=== PATIENT | male | born 1950 | race Hispanic/Latino ===

== ENCOUNTER → 2018-12-13 | Outpatient (CLI) | payer MEDICARE ==
[~2018-12-13] MED LIST: REGADENOSON 0.4 MG/5 ML PF SYG IVP SCH
== END | disposition home or self-care (01) ==
LOC: SHCH 08:45
PROVIDERS: ATTEND Internal Medicine Cardiovascular Disease
DX: I10 Essential (primary) hypertension (principal); R53.83 Other fatigue; I25.10 Atherosclerotic heart disease of native coronary artery without angina pectoris; E03.9 Hypothyroidism, unspecified; E78.5 Hyperlipidemia, unspecified; Z79.899 Other long term (current) drug therapy
CPT/HCPCS: 78452; 93017; 96374; A9500 ×2; J2785

== ENCOUNTER → 2018-12-19 | Outpatient (CLI) | payer MEDICARE | END | disposition home or self-care (01) | LOC: SHCH 09:50 | PROVIDERS: ATTEND Internal Medicine Cardiovascular Disease | DX: I65.23 Occlusion and stenosis of bilateral carotid arteries (principal) | CPT/HCPCS: 93880 ==

== ENCOUNTER → 2018-12-25 | Outpatient (CLI) | payer MEDICARE | END | disposition home or self-care (01) | LOC: SHCH 09:09 | PROVIDERS: ATTEND Internal Medicine Cardiovascular Disease | DX: I11.9 Hypertensive heart disease without heart failure (principal); I35.0 Nonrheumatic aortic (valve) stenosis | CPT/HCPCS: 93306 ==

== ENCOUNTER → 2022-04-06 | Outpatient (CLI) | payer MEDICARE | END | disposition home or self-care (01) | LOC: SHCH 10:32 | PROVIDERS: ATTEND Internal Medicine Cardiovascular Disease | DX: I35.8 Other nonrheumatic aortic valve disorders (principal); I11.9 Hypertensive heart disease without heart failure; I25.10 Atherosclerotic heart disease of native coronary artery without angina pectoris; E78.5 Hyperlipidemia, unspecified | CPT/HCPCS: 93306 ==

== ENCOUNTER → 2022-04-10 | Outpatient (CLI) | payer MEDICARE | END | disposition home or self-care (01) | LOC: SHCH 08:02 | PROVIDERS: ATTEND Internal Medicine Cardiovascular Disease | DX: I25.10 Atherosclerotic heart disease of native coronary artery without angina pectoris (principal); I10 Essential (primary) hypertension; Z95.1 Presence of aortocoronary bypass graft | CPT/HCPCS: 78452; 96374; 93017; J2785; A9500 ×2 ==

== ENCOUNTER 2022-05-26 06:34 | Day surgery (SDC) | payer MEDICARE ==
[2022-05-24 10:50] VITALS: BP 170/77
[2022-05-24 10:55] LABS: APPEARANCE,URINE CLEAR (CLEAR); BILIRUBIN,URINE NEGATIVE (NEGATIVE); COLOR,URINE YELLOW (YELLOW); GLUCOSE, URINE (UA) NEGATIVE (NEGATIVE); KETONES,URINE NEGATIVE (NEGATIVE); LEUKOCYTE ESTERASE ,URINE NEGATIVE Leu/uL (NEGATIVE); NITRATE,URINE NEGATIVE (NEGATIVE); OCCULT BLOOD,URINE NEGATIVE (NEGATIVE); PH,URINE 5.5 (5.0-8.0); PROTEIN,URINE 20 mg/dL (NEGATIVE); UROBILINOGEN,URINE 0.2 mg/dL (0.2-1.0)
[2022-05-24 10:55] LABS: BASOPHILS % (AUTO) 0.5 % (0.0-5.0); EOSINOPHILS % (AUTO) 2.3 % (0.0-8.0); LYMPHOCYTES % (AUTO) 21.3 % (21.0-51.0); MEAN CORPUSCULAR HGB CONC 33.6 g/dL (32.0-36.0); MEAN CORPUSCULAR VOLUME 92.3 fL (79-99); MONOCYTES % (AUTO) 6.8 % (3.0-13.0); NEUTROPHILS % (AUTO) 68.8 % (40.0-77.0); PLATELET COUNT (AUTO) 268 K/uL (130-400); RED BLOOD CELL COUNT(AUTO) 5.42 MIL/uL (4.50-6.20); RED CELL DISTRIBUTION WIDTH 13.2 % (11.0-15.5); WHITE BLOOD COUNT (AUTO) 8.9 K/uL (4.8-10.8)
[2022-05-24 11:00] LABS: MUCUS,URINE FEW LPF (None Seen)
[2022-05-24 11:05] LABS: CREATININE 1.1 mg/dL (0.5-1.5); POTASSIUM 4.7 mmol/L (3.5-5.1)
[2022-05-24 11:11] LABS: INR 0.96 (0.85-1.15); PROTHROMBIN TIME 10.5 SEC (9.6-11.6)
[2022-05-24 11:12] LABS: PARTIAL THROMBOPLASTIN TIME 26.9 SEC (26.3-35.5)
[2022-05-24 11:20] LABS: B-TYPE NATRIURETIC PEPTIDE 28 pg/mL (0-100)
[~2022-05-26] VITALS: Ht 165.1 cm; Wt 82.8 kg
[2022-05-26] VITALS (13 sets, daily range): BP systolic 129–194; BP diastolic 59–90
[~2022-05-26 06:34] MED LIST changes: +AEC81 PO; +METO25TA6 PO; +RANO500T2 PO; -REGADENOSON 0.4 MG/5 ML PF SYG IVP SCH; +SIMV80TA91 PO
[2022-05-26] MEDS ORDERED: 0.9%NACL 1000ML 1,000 ML IV ONE (07:13)
[2022-05-26] MEDS ORDERED: IOHEXOL-350 50ML VIAL IV ONE (10:18)
[2022-05-26] MEDS ORDERED: LIDOCAINE HCL 400MG/20ML VIAL ONE (10:18)
[2022-05-26] MEDS ORDERED: IOHEXOL 350 MG/ML 100ML INFUS..BTL IV ONE (10:18)
[2022-05-26] MEDS ORDERED: MEPERIDINE-PF 25 MG/ML SYG ONE ×2 (10:18→10:34)
[2022-05-26] MEDS ORDERED: SODIUM BICARB 50MEQ 50ML VIAL 50 ML ONE (10:18)
[2022-05-26] MEDS ORDERED: MIDAZOLAM HCL 1 MG/ML 2ML VIAL ONE ×2 (10:18→10:33)
[2022-05-26] MEDS ORDERED: NITROGLYCERIN 50MG VIAL ONE (10:18)
[2022-05-26] MEDS ORDERED: HEPARIN 10,000 UNIT/10ML (1,000 UNIT/ML) VIAL ONE (10:19)
[2022-05-26] MEDS ORDERED: CLOPIDOGREL 300MG TAB ONE (11:15)
[2022-05-26] MEDS ORDERED: 0.9%NACL 1000ML 1,000 ML IV SCH (11:30)
[2022-05-26] MEDS ORDERED: ACETAMINOPHEN WITH CODEINE 1 TAB TAB PO PRN ×2 (11:30)
== END 2022-05-26 17:55 | disposition home or self-care (01) ==
LOC: DAH 06:34
PROVIDERS: ATTEND Internal Medicine Cardiovascular Disease
DX: I25.119 Atherosclerotic heart disease of native coronary artery with unspecified angina pectoris (principal); I25.82 Chronic total occlusion of coronary artery; I25.719 Atherosclerosis of autologous vein coronary artery bypass graft(s) with unspecified angina pectoris; I11.0 Hypertensive heart disease with heart failure; I50.32 Chronic diastolic (congestive) heart failure; Z79.01 Long term (current) use of anticoagulants; Z79.82 Long term (current) use of aspirin; Z79.899 Other long term (current) drug therapy; Z98.890 Other specified postprocedural states; Z82.49 Family history of ischemic heart disease and other diseases of the circulatory system; Z95.5 Presence of coronary angioplasty implant and graft
CPT/HCPCS: 80048; 83880; 85025; 85610; 85730; 81001; 36415; 71045; 93005; 93459; 85347; C9604; C1769 ×2; C1887; C1894 ×2; C1760; C1874; Q9965 ×2; J3490 ×3; J7030; J1644 ×2; J2250 ×2; J2175 ×2; Q9967; A4215; A4222; A4221; A4663; A4216; A4606; A4223 ×3; 93458; 96360; 96361; 99156; 99157

== ENCOUNTER 2023-07-31 11:48 | Observation (INO) | payer OTHER, MEDICARE ==
[2023-07-30 13:10] LABS: BASOPHILS # (AUTO) 0.06 K/uL (0.00-0.20); BASOPHILS % (AUTO) 0.5 % (0.0-5.0); EOSINOPHILS # (AUTO) 0.18 K/uL (0.00-0.70); EOSINOPHILS % (AUTO) 1.4 % (0.0-8.0); IMMATURE GRANULOCYTE ABSOLUTE 0.07 K/uL (0-1); LYMPHOCYTES # (AUTO) 1.9 K/uL (1.0-4.8); LYMPHOCYTES % (AUTO) 14.3 % (21.0-51.0); MEAN CORPUSCULAR HEMOGLOBIN 32.1 pg (27.0-33.0); MEAN CORPUSCULAR HGB CONC 33.8 g/dL (32.0-36.0); MEAN CORPUSCULAR VOLUME 95.2 fL (79-99); MONOCYTES # (AUTO) 0.6 K/uL (0.1-1.0); NEUTROPHILS # (AUTO) 10.1 K/uL (1.8-7.7); NEUTROPHILS % (AUTO) 78.3 % (40.0-77.0); PLATELET COUNT (AUTO) 263 K/uL (130-400); RED BLOOD CELL COUNT(AUTO) 5.04 MIL/uL (4.50-6.20); RED CELL DISTRIBUTION WIDTH 13.6 % (11.0-15.5); WHITE BLOOD COUNT (AUTO) 12.9 K/uL (4.8-10.8)
[2023-07-30 13:21] LABS: APPEARANCE,URINE CLEAR (CLEAR); BILIRUBIN,URINE SMALL mg/dL (NEGATIVE); COLOR,URINE DARK YELLOW (YELLOW); GLUCOSE, URINE (UA) NEGATIVE (NEGATIVE); KETONES,URINE 5 mg/dL (NEGATIVE); LEUKOCYTE ESTERASE ,URINE NEGATIVE Leu/uL (NEGATIVE); NITRATE,URINE NEGATIVE (NEGATIVE); OCCULT BLOOD,URINE NEGATIVE (NEGATIVE); PH,URINE 5.5 (5.0-8.0); PROTEIN,URINE TRACE mg/dL (NEGATIVE)
[2023-07-30 13:22] LABS: ADD UA MICROSCOPIC NO
[2023-07-30 13:24] LABS: INR <= 0.93 (0.85-1.15)
[2023-07-30 13:26] LABS: PARTIAL THROMBOPLASTIN TIME 25.7 SEC (26.3-35.5)
[2023-07-30 13:38] LABS: CREATININE 1.1 mg/dL (0.5-1.3); POTASSIUM 3.7 mmol/L (3.5-5.1)
[2023-07-30 13:40] LABS: BACTERIA,URINE Rare /HPF (None Seen); RBC,URINE 0-1 /HPF (0-1); SQUAMOUS EPITHELIAL CELL,UR 0-2 /HPF (0-2); WBC,URINE 0-1 /HPF (0-1)
[2023-07-30 13:41] LABS: CALCIUM OXALATE CRYSTALS,UR Moderate /LPF (None Seen); MUCUS,URINE Moderate LPF (None Seen)
[2023-07-30 13:42] LABS: B-TYPE NATRIURETIC PEPTIDE 74 pg/mL (0-100)
[2023-07-30 13:56] VITALS: BP 169/74; PULSE 73; RESP 19
[2023-07-31] VITALS (10 sets, daily range): BP systolic 134–170; BP diastolic 66–90; PULSE 61–82; RESP 17–22; O2SAT 97
[~2023-07-31] VITALS: Ht 152.4 cm; Wt 81.6 kg
[~2023-07-31 11:48] MED LIST changes: +ROSU40TA21 PO; -SIMV80TA91 PO
[2023-07-31] MEDS ORDERED: LIDOCAINE HCL 400MG/20ML VIAL ONE (14:23)
[2023-07-31] MEDS ORDERED: NITROGLYCERIN 50MG VIAL ONE (14:23)
[2023-07-31] MEDS ORDERED: IOHEXOL 350 MG/ML 100ML INFUS..BTL IV ONE (14:23)
[2023-07-31] MEDS ORDERED: SODIUM BICARB 50MEQ 50ML VIAL 50 ML ONE (14:23)
[2023-07-31] MEDS ORDERED: HEPARIN 10,000 UNIT/10ML (1,000 UNIT/ML) VIAL ONE (14:23)
[2023-07-31] MEDS ORDERED: IOHEXOL-350 50ML VIAL IV ONE (14:23)
[2023-07-31] MEDS ORDERED: NICARDIPINE 25MG INJ IV ONE (14:23)
[2023-07-31] MEDS ORDERED: MEPERIDINE-PF 25 MG/ML SYG ONE (15:00)
[2023-07-31] MEDS ORDERED: MIDAZOLAM HCL 1 MG/ML 2ML VIAL ONE (15:00)
[2023-07-31] MEDS ORDERED: CLOPIDOGREL 300MG TAB ONE (15:58)
[2023-07-31] MEDS ORDERED: DEXTROSE 50%-WATER 50 ML DISP.SYRIN IV PRN (16:30)
[2023-07-31] MEDS ORDERED: GLUCAGON 1MG KIT 1 MG ML IM PRN (16:30)
[2023-07-31] MEDS: METOPROLOL TARTRATE 25 MG TAB PO SCH (20:57)
[2023-07-31] MEDS: ATORVASTATIN 40 MG TABLET PO SCH (20:57)
[2023-07-31] MEDS: RANOLAZINE 500 MG TAB.SR.12H PO SCH (20:57)
[2023-07-31] MEDS ORDERED: NON-FORMULARY MEDICATION 1 EACH (Rosuvastatin Calcium 40 MG) PO SCH (21:00)
[2023-08-01 00:30] VITALS: BP 138/85; PULSE 66; RESP 20
[2023-08-01 03:35] VITALS: BP 139/73; PULSE 74; RESP 20
[2023-08-01 03:40] LABS: HEMATOCRIT 45.9 % (42-54); MEAN CORPUSCULAR HEMOGLOBIN 32.3 pg (27.0-33.0); RED BLOOD CELL COUNT(AUTO) 4.83 MIL/uL (4.50-6.20); RED CELL DISTRIBUTION WIDTH 13.6 % (11.0-15.5); WHITE BLOOD COUNT (AUTO) 14.1 K/uL (4.8-10.8)
[2023-08-01 03:49] LABS: HEMOGLOBIN A1C 6.1 % (4.0-6.0)
[2023-08-01 03:51] LABS: CREATININE 1.2 mg/dL (0.5-1.3); POTASSIUM 4.3 mmol/L (3.5-5.1)
[2023-08-01] MEDS ORDERED: CLOP-31 PO (07:58)
[2023-08-01] MEDS ORDERED: ATOR40TA69 PO (07:58)
[2023-08-01 08:00] VITALS: O2SAT 95
[2023-08-01 08:04] VITALS: BP 142/70; PULSE 63; RESP 20
[2023-08-01] MEDS: ASPIRIN 81 MG EC TAB PO SCH (09:05)
[2023-08-01] MEDS: CLOPIDOGREL 75MG TAB PO SCH (09:06)
[2023-08-01] MEDS: 0.9%NACL 1000ML 1,000 ML IV SCH (09:06)
== END 2023-08-01 11:46 | disposition home or self-care (01) ==
LOC: DAH 11:48 → DAHIP 11:49 → DAH 11:49 → 2AH 17:15
PROVIDERS: ADMIT Internal Medicine Critical Care Medicine; ATTEND Internal Medicine Critical Care Medicine
DX: I25.709 Atherosclerosis of coronary artery bypass graft(s), unspecified, with unspecified angina pectoris (principal); D72.829 Elevated white blood cell count, unspecified; E86.0 Dehydration; R73.9 Hyperglycemia, unspecified; E03.9 Hypothyroidism, unspecified; I13.0 Hypertensive heart and chronic kidney disease with heart failure and stage 1 through stage 4 chronic kidney disease, or unspecified chronic kidney disease; N18.2 Chronic kidney disease, stage 2 (mild); I50.32 Chronic diastolic (congestive) heart failure; N17.9 Acute kidney failure, unspecified; E78.5 Hyperlipidemia, unspecified; R00.1 Bradycardia, unspecified; I73.9 Peripheral vascular disease, unspecified; M54.30 Sciatica, unspecified side
CPT/HCPCS: 80048 ×2; 83880; 85025; 85610; 85730; 81003; 81001; 36415 ×3; 71045; 93005; 93459; 85347 ×2; 83036; 84443; 85027; C1769 ×2; C1894; C1887; C1760; C1884; Q9965 ×2; C1874; G0378 ×20; J3490 ×3; J1644 ×2; J2250; J2175; Q9967; C9604; 99156; 99157